=== PATIENT | male | born 1960 | race Caucasian/White ===

== ENCOUNTER 2017-04-18 01:33 | Inpatient (IN) | payer SELFPAY ==
[~2017-04-18] VITALS: Ht 185.4 cm; Wt 133.8 kg
--- NOTE | 2017-04-18 01:35 | NUR ---
PT TAKEN TO BED 1
--- NOTE | 2017-04-18 01:35 | NUR ---
56/M CAME W/ C/O SOB X 1HR AND COUGH X LAST WEDNESDAY AND 12/01 SUDDEN ONSET RT SIDED CHEST PAIN RADIATING TO SUBTERNAL UPON ARRIVAL TO BED. PT PLACED ON DIRECTOR CLIENT SERVICES AND EKG, REVIEWED BY TALIA CREWS. SINUS TACHY ON MONITOR WITH RATE 111. PT ABLE TO SPEAK AT FULL LENGTH WITH MODERATE DISTRESS AND STATES " I HAVE A LOT OF PHLEGM". RLL NOTED WITH RHONCHI AND WHEEZING ON ANTHONY UPPER LOBES NOTED. 24 RR EVEN AND LABORED WITH ACCESSORY MUSCLE USE. PT STATES HE HAS BEEN SEEN BY MD FOR SIMILAR SYMPTOMS AND WAS GIVEN VENTOLIN AND MUCINEX WITHOUT RELIEF OF SYMPTOMS. SKIN IS WARM AND DRY, AOX4, GCS 15. PMH: HTN Addendum: 04/18/17 at 0233 by HEATHER TALIA CREWS AT BEDSIDE
[2017-04-18 01:38] VITALS: BP 197/121
[2017-04-18] MEDS ORDERED: ASPIRIN 325 MG TAB PO ONE (01:50)
[2017-04-18] MEDS ORDERED: NITROGLYCERIN 0.4 MG TAB SL ONE (01:50)
--- NOTE | 2017-04-18 01:50 | NUR ---
NTG 0.4 MG SL GIVEN
--- NOTE | 2017-04-18 01:56 | NUR ---
NTG 0.4 MG SL GIVEN AT THIS TIME FOR CHETS PAIN BP162/136 P119
[2017-04-18] MEDS ORDERED: MORPHINE SULFATE 4 MG/ML SYR IVP ONE (02:05)
[2017-04-18 02:07] LABS: HEMATOCRIT 48.7 % (36-52); MEAN CORPUSCULAR HEMOGLOBIN 31 pg (27-31); MEAN CORPUSCULAR HGB CONC 33 g/dL (33-37); MEAN CORPUSCULAR VOLUME 95 fL (80-94); PLATELET COUNT (AUTO) 198 K/uL (140-450); RED BLOOD CELL COUNT(AUTO) 5.16 MIL/uL (4.20-6.10); RED CELL DISTRIBUTION WIDTH 12.6 % (11.6-13.7); WHITE BLOOD COUNT (AUTO) 9.9 K/uL (4.8-10.8)
[2017-04-18 02:17] LABS: ANION GAP 12.8 (8-16); CARBON DIOXIDE 26.9 mmol/L (21-32); CREATININE 1.6 mg/dL (0.7-1.3); POTASSIUM 4.7 mmol/L (3.5-5.1)
[2017-04-18 02:24] LABS: ALBUMIN 3.8 g/dL (3.4-5.0); TOTAL BILIRUBIN 0.9 mg/dL (0.0-1.0)
[2017-04-18] MEDS ORDERED: ALBUTEROL SULFATE/IPRATROPIU 3 ML SOL IH ONE (02:25)
[2017-04-18 02:28] LABS: LYMPHOCYTES % (MANUAL) 12 % (20-46); MONOCYTES % (MANUAL) 8 % (5-12)
[2017-04-18 02:32] LABS: CREATINE KINASE MB 5.2 ng/mL (0-3.6)
--- NOTE | 2017-04-18 02:37 | NUR ---
Respiratory Therapist at bedside for respiratory intervention.
--- NOTE | 2017-04-18 02:40 | NUR ---
PT STATES " HE FEELS BETTER". VSS AT THIS TIME
--- NOTE | 2017-04-18 03:00 | NUR ---
PT TAKEN TO CT
[2017-04-18 03:01] LABS: PROTHROMBIN TIME 10.8 secs (10.8-13.4)
--- NOTE | 2017-04-18 03:21 | NUR ---
PT RETURN FROM CT
--- NOTE | 2017-04-18 04:00 | NUR ---
Patient appears to be resting comfortably in bed. Vital Signs within normal limits. Respirations even and unlabored.
[2017-04-18] MEDS ORDERED: ACETAMIN/CODEINE 120/12MG-5ML 5 ML UDC PO ONE (04:10)
[2017-04-18] MEDS ORDERED: LEVOFLOXACIN 750 MG/D5W PREMIX 150 ML IV ONE (04:20)
[2017-04-18] MEDS ORDERED: KETOROLAC 30 MG/ML VIAL IVP ONE (04:30)
[2017-04-18] MEDS ORDERED: AMLO10TA PO (04:51)
[2017-04-18] MEDS ORDERED: ONDANSETRON 4 MG/2 ML VIAL IVP PRN (05:00)
[2017-04-18] MEDS ORDERED: ACETAMINOPHEN 325 MG TAB PO PRN (05:00)
[2017-04-18] MEDS ORDERED: HYDROmorphone 1 MG/ML AMP IVP ONE (05:15)
--- NOTE | 2017-04-18 05:23 | NUR ---
Patient will be admitted to care of SHANNA. Admited to TELE. Will go to room 119A. Belongings list completed. BEDSIDE Report to TRUDI RAMSAY. IV INFUSING
--- NOTE | 2017-04-18 05:35 | NUR ---
RECEIVED THIS 56 YEAR OLD MALE FROM ER PER KATIE WITH CC OF SOB AND COUGH, AMBULATED TO BED WITH STEADY GAIT, VITAL SIGNS TAKEN, BP-169/110, DR PECK MADE AWARE, PUT ON TELE MONITOR AND O2 VIA NASAL CANNULA AT 2L, HOB ON HIGH FOWLERS POSITION, VERBALIZED LEFT SIDED CHEST AND BACK WHEN COUGHING, ORIENTED TO ROOM AND CALL LIGHT, FAMILY MEMBERS AT BEDSIDE, CALL LIGHT WITHIN REACH.
[2017-04-18] MEDS: guaiFENesin 600 MG TABER PO SCH ×2 (06:30→21:10)
[2017-04-18] MEDS: NACL 0.9% 1,000 ML IV SCH ×2 (06:32→16:06)
--- NOTE | 2017-04-18 06:32 | NUR ---
ASK DR PECK FOR DIET, HE SAID HE CAN EAT, WATER PROVIDED, HE SAID TO GIVE THE MUCINEX 0900 DOSE NOW, CARRIED OUT, IVF INFUSING WELL, MONITORED CLOSELY.
[2017-04-18] MEDS: guaiFENesin/CODEINE 100/10MG 5 ML UDC PO PRN ×2 (06:35→19:43)
--- NOTE | 2017-04-18 07:15 | NUR ---
PT SITTING ON BED, AWAITING BREATHING TX FROM RT, BEDSIDE REPORT GIVEN TO SOBIA RIDER FOR CONTINUITY OF CARE.
[2017-04-18 07:17] LABS: CHOL/HDL RATIO 2.1 (1-4.5); FREE T4 (FREE THYROXINE) 1.13 ng/dL (0.76-1.46); MAGNESIUM 1.7 mg/dL (1.8-2.4); THYROID STIMULATING HORMONE 1.4 uIU/mL (0.34-3.74)
--- NOTE | 2017-04-18 07:20 | NUR ---
RECEIVED REPORT FROM INFORMATION SYSTEMS SECURITY MANAGER. PT IS RESTING IN BED, AAOX4, AMBULATORY, PT HAS IV ON HIS LEFT AC, PATENT, INTACT, FLUSHING WELL, PT IS COMPLAINING OF CHEST SORENESS WHEN HE INHALES, PT TRYING TO SUPPRESS COUGH, RT IS AT PATIENT'S BEDSIDE BEGINNING PT ON BREATHING TREATMENT, DISCUSSED PLAN OF CARE WITH PT, PT VERBALIZED UNDERSTANDING, SAFETY/FALL PRECAUTIONS ARE IN PLACE, CALL LIGHT IS WITHIN REACH, WILL CONTINUE TO MONITOR.
[2017-04-18] MEDS: ALBUTEROL SULFATE/IPRATROPIU 3 ML SOL IH SCH ×3 (07:33→20:09)
--- NOTE | 2017-04-18 07:34 | NUR ---
PATIENT COMPLAINING OF NAUSEA AND STATES HE FEELS LIKE HE IS GOING TO VOMIT. WILL MEDICATE WITH ZOFRAN IVP AT THIS TIME.
[2017-04-18 08:00] VITALS: BP 175/103
[2017-04-18 08:00] LABS: PROTHROMBIN TIME 11.2 secs (10.8-13.4)
[2017-04-18] MEDS: DOCUSATE SODIUM 100 MG GELCAP PO SCH ×2 (08:17→21:00)
[2017-04-18] MEDS: amLODIPine 5 MG TAB PO SCH (08:17)
--- NOTE | 2017-04-18 08:17 | NUR ---
DUE MEDICATION GIVEN, PT TOLERATED WELL, CALL LIGHT WITHIN REACH, PATIENT'S GIRLFRIEND IS AT BEDSIDE.
[2017-04-18] MEDS: METOPROLOL 50 MG TAB PO SCH ×2 (09:54→21:10)
--- NOTE | 2017-04-18 10:30 | NUR ---
PT AMBULATING AROUND THE NURSES STATION ACCOMPANIED BY HIS GIRLFRIEND.
[2017-04-18] MEDS: HYDROcodone/APAP 7.5/325 MG 1 TAB PO PRN ×2 (11:19→18:20)
[2017-04-18] MEDS ORDERED: MAGNESIUM OXIDE 400 MG TAB PO SCH (11:25)
[2017-04-18 12:00] VITALS: BP 143/98
--- NOTE | 2017-04-18 12:50 | NUR ---
PT IS RESTING IN BED, NO S/S OF RESPIRATORY DISTRESS OR DISCOMFORT NOTED, CALL LIGHT IS WITHIN REACH.
[2017-04-18] MEDS ORDERED: LISINOPRIL 10 MG TAB PO SCH (13:30)
[2017-04-18] MEDS: LISINOPRIL 10 MG TAB PO SCH (13:41)
[2017-04-18 16:00] VITALS: BP 120/83
[2017-04-18] MEDS: ALBUTEROL SULFATE/IPRATROPIU 3 ML SOL IH PRN (16:18)
--- NOTE | 2017-04-18 17:02 | NUR ---
1650 PLACED PT ON 4LNC WITH HUMIDIFICATION. PT SATS ON 3LNC ARE 90%
--- NOTE | 2017-04-18 17:30 | NUR ---
DR. COSME IN PATIENT'S ROOM TALKING TO PT AND FAMILY. PER DR. COSME HE WILL NOT NEED A THORACENTESIS AT THIS TIME. WILL CONTINUE WITH ANTIBIOTICS.
--- NOTE | 2017-04-18 19:29 | NUR ---
ENDORSED PT TO EXHIBITS COORDINATOR NURSE FOR CONTINUITY OF CARE. PT STABLE AT THIS TIME, FAMILY IS AT BEDSIDE.
--- NOTE | 2017-04-18 19:30 | NUR ---
RECEIVED PT AWAKE ON HIGH FOWLERS POSITION TALKING TO FAMILY MEMBERS AT BEDSIDE, VITAL SIGNS STABLE, DENIES ANY PAIN EXCEPT WHEN COUGHING, OCCASIONAL COUGH NOTED, WILL MEDICATE PRN WITH COUGH MEDICATION, IVF INFUSING WELL, PLAN OF CARE DISCUSS, SAFETY MEASURES IN PLACE, CALL LIGHT WITHIN REACH.
[2017-04-18 20:00] VITALS: BP 114/78
--- NOTE | 2017-04-18 21:15 | NUR ---
DUE MEDS GIVEN WITH EDUCATION PROVIDED, REFUSED COLACE, RISK AND BENEFITS EXPLAINED, STILL REFUSED, ALL NEEDS ATTENDED.
--- NOTE | 2017-04-18 22:40 | NUR ---
PT AMBULATORY TO BR WITH STEADY GAIT, VOIDED FREELY, NO SOB NOTED, MONITORED CLOSELY.
[2017-04-18 23:14] LABS: APPEARANCE,URINE CLEAR (CLEAR); BILIRUBIN,URINE NEGATIVE (NEGATIVE); BLOOD, URINE 1+ (NEGATIVE); COLOR,URINE YELLOW (YELLOW); LEUKOCYTE ESTERASE ,URINE NEGATIVE (NEGATIVE); NITRITE, URINE NEGATIVE (NEGATIVE); PH,URINE 5.5 (5.0-9.0); UGLUCOSE NEGATIVE (NEGATIVE)
[2017-04-19] VITALS: BP 116/68
--- NOTE | 2017-04-19 | NUR ---
PT SLEEPING, EASILY AROUSABLE, VITAL SIGNS STABLE, DENIES ANY PAIN, NO SOB NOTED, IVF INFUSING WELL, CONTINUE TO MONITOR CLOSELY.
[2017-04-19 00:07] LABS: RBC,URINE 0-5 (RARE) /HPF (0-5); WBC,URINE 0-5 (RARE) /HPF (0-5)
[2017-04-19] MEDS: guaiFENesin/CODEINE 100/10MG 5 ML UDC PO PRN ×2 (03:40→20:55)
--- NOTE | 2017-04-19 03:40 | NUR ---
PT COMPLAINING OF CONGESTION DUE TO TOO MUCH SECRETION, UNABLE TO COUGH IT OUT, PAGED RT NAHED, WILL GIVE BREATHING TX, LEFT SIDED PAIN ONLY WHEN COUGHING, MEDICATED PRN WITH ROBITUSSIN FOR COUGH, SAT-96% ON 2L/NC, NO SOB NOTED, MONITORED CLOSELY.
[2017-04-19] MEDS: NACL 0.9% 1,000 ML IV SCH ×3 (03:41→17:15)
[2017-04-19] MEDS: ALBUTEROL SULFATE/IPRATROPIU 3 ML SOL IH PRN ×2 (03:51→15:23)
[2017-04-19 04:00] VITALS: BP 111/70
--- NOTE | 2017-04-19 05:50 | NUR ---
PT SEEN SLEEPING ON HIGH FOWLERS POSITION, O2 IN PLACE AT 2L/NC, NO SOB NOTED, IVF INFUSING WELL, MONITORED CLOSELY.
[2017-04-19 06:58] LABS: BASOPHILS # (AUTO) 0.1 K/uL (0.00-0.22); BASOPHILS % (AUTO) 1.2 % (0.0-2.0); EOSINOPHILS % (AUTO) 0.2 % (0.0-4.0); HEMATOCRIT 39.8 % (36-52); HEMOGLOBIN 13.1 g/dL (12.0-18.0); LYMPHOCYTES % (AUTO) 11.2 % (20.5-51.1); MEAN CORPUSCULAR HEMOGLOBIN 31 pg (27-31); MEAN CORPUSCULAR HGB CONC 33 g/dL (33-37); MEAN CORPUSCULAR VOLUME 95 fL (80-94); MONOCYTES # (AUTO) 1.3 K/uL (0.8-1.0); MONOCYTES % (AUTO) 15.7 % (1.7-9.3); NEUTROPHILS # (AUTO) 6.2 K/uL (1.8-7.7); NEUTROPHILS % (AUTO) 71.7 % (42.2-75.2); PLATELET COUNT (AUTO) 155 K/uL (140-450); RED CELL DISTRIBUTION WIDTH 12.7 % (11.6-13.7); WHITE BLOOD COUNT (AUTO) 8.6 K/uL (4.8-10.8)
[2017-04-19 07:24] LABS: CARBON DIOXIDE 27.6 mmol/L (21-32); CREATININE 1.8 mg/dL (0.7-1.3); POTASSIUM 4.6 mmol/L (3.5-5.1)
[2017-04-19] MEDS: ALBUTEROL SULFATE/IPRATROPIU 3 ML SOL IH SCH ×3 (07:27→19:59)
--- NOTE | 2017-04-19 07:28 | NUR ---
SATURATION 99% ON HUMIDIFIED SUPPLEMENTAL OXYGEN AT 4 LPM VIA NC POST HHN THERAPY TITRATED FIO2 TO 3 LPM STEPAN/RN AWARE PATIENT UNABLE TO FACILITATE INCENTIVE SPIROMETRY AT THIS TIME DUE TO LEFT SIDE CHEST/ABDOMINAL PAIN RN AWARE MANAGEMENT DEVELOPMENT SPECIALIST TO ATTEMPT IS AT A LATER TIME
[2017-04-19 07:29] LABS: MAGNESIUM 1.8 mg/dL (1.8-2.4); PHOSPHORUS 4.6 mg/dL (2.5-4.9)
--- NOTE | 2017-04-19 07:35 | NUR ---
PT AWAKE, NO SIGNS OF DISTRESS, PRESENTLY GETTING BREATHING TX FROM RT YARIEL, BEDSIDE REPORT GIVEN TO RN STEAPN FOR CONTINUITY OF CARE.
--- NOTE | 2017-04-19 07:50 | NUR ---
ENDORSEMENT RECEIVED FROM DIRECTOR OF GUIDANCE NURSE. PATIENT IS AWAKE, ALERT. RESPIRATION EVEN, UNLABOR ON 3L. RT WAS AT BEDSIDE. SKIN DRY AND WARM. IV PATENT AND INTACT. COMPLAINED OF PAIN ON LEFT SIDE OF CHEST /, WILL MEDICATE PER ORDER. DENIED SOB AT THIS TIME. PLAN OF CARE WAS DISCUSSED WITH PATIENT. BED AT LOW POSITION, SIDE RAILS UP. CALL LIGHT WITHIN REACH.
[2017-04-19 08:00] VITALS: BP 107/62
[2017-04-19] MEDS: guaiFENesin 600 MG TABER PO SCH ×2 (08:24→20:57)
[2017-04-19] MEDS: LEVOFLOXACIN 750 MG/D5W PREMIX 150 ML IV SCH (08:24)
[2017-04-19] MEDS: amLODIPine 5 MG TAB PO SCH (08:25)
[2017-04-19] MEDS: LISINOPRIL 10 MG TAB PO SCH (08:25)
[2017-04-19] MEDS: HYDROcodone/APAP 7.5/325 MG 1 TAB PO PRN ×2 (08:25→17:49)
[2017-04-19] MEDS: METOPROLOL 50 MG TAB PO SCH ×2 (08:26→20:56)
[2017-04-19] MEDS: DOCUSATE SODIUM 100 MG GELCAP PO SCH ×2 (08:26→20:56)
--- NOTE | 2017-04-19 10:03 | NUR ---
PATIENT HAS BEEN SCREENED AND CATEGORIZED MODERATE NUTRITION RISK. PATIENT WILL BE SEEN WITHIN 3-5 DAYS OF ADMISSION. 04/20/17-04/22/[address]
--- NOTE | 2017-04-19 10:26 | NUR ---
PATIENT COMPLAINED OF UNABLE TO COUGH OF THE PHLEGM, CONGESTION, REQUESTED FOR BREATHING TREATMENT. LUNGS SOUND RHONCHI THROUGHOUT. RT WAS NOTIFIED.
--- NOTE | 2017-04-19 11:00 | NUR ---
PATIENT COMPLAINED OF BRUISE ON THE LEFT SIDE OF ABDOMEN THAT SPREADS TO THE BACK SINCE LAST NIGHT. NO PAIN WITH PALPATION, WILL NOTIFY .
--- NOTE | 2017-04-19 11:15 | NUR ---
PATIENT AMBULATES AROUND THE HALLWAY, STEADY GAIT, NO SOB NOTED, SPO2 94% ON ROOM AIR, HR 78. HOWEVER, PATIENT REQUESTED TO BE PUT BACK ON O2, STATED IT MAKES HIM FEEL BETTER.
--- NOTE | 2017-04-19 11:36 | NUR ---
TOLERATED INCENTIVE SPIROMETRY THERAPY WELL WITHOUT ADVERSE REACTIONS NOTED ENCOURAGED PATIENT WITH ACKNOWLEDGEMENT TO USE EVERY 1-2 HOURS WHILE AWAKE
[2017-04-19 12:00] VITALS: BP 113/71
--- NOTE | 2017-04-19 12:10 | NUR ---
PATIENT IS AWAKE, ALERT. RESPIRATION EVEN, UNLABOR ON 3L 02 VIA NC. DENIED PAIN, SOB AT THIS TIME. NO DISTRESS NOTED. WINDOWS DEPLOYMENT TECHNICIAN IS AT BEDSIDE. CALL LIGHT WITHIN REACH
--- NOTE | 2017-04-19 13:57 | NUR ---
CM NOTE INITIAL REVIEW FOR CRITERIA DONE
[2017-04-19] MEDS ORDERED: CALCIUM CARB/VIT-D 500 MG/200 IU 1 TAB PO SCH (14:45)
[2017-04-19] MEDS ORDERED: guaiFENesin 600 MG TABER PO SCH ×2 (14:45→21:00)
[2017-04-19] MEDS ORDERED: MAGNESIUM OXIDE 400 MG TAB PO SCH (15:00)
--- NOTE | 2017-04-19 15:09 | NUR ---
DR. VALDEZ WAS MADE AWARE OF THE PATIENT'S ABDOMEN BRUISE, ABDOMEN US WAS ORDER. PATIENT REFUSED THE US, STATED HE CAN BRUISE VERY EASILY, NO NEED FOR US.
[2017-04-19 16:00] VITALS: BP 114/72
--- NOTE | 2017-04-19 16:13 | NUR ---
PATIENT IS AWAKE, ALERT. RESPIRATION EVEN, UNLABOR ON 3L NC. COMPLAINED CONGESTION. MED WAS GIVEN PER ORDER. NO DISTRESS NOTED AT THIS TIME. CALL LIGHT WITHIN REACH, FAMILY AT BEDSIDE
[2017-04-19] MEDS: CALCIUM CARB/VIT-D 500 MG/200 IU 1 TAB PO SCH (17:12)
--- NOTE | 2017-04-19 18:39 | NUR ---
PATIENT IS AWAKE, ALERT. RESPIRATION EVEN, UNLABOR ON 3L NC. PAIN MEDICATION WAS GIVEN PER ORDER. NO DISTRESS NOTED AT THIS TIME. IV PATENT AND INTACT. CALL LIGHT WITHIN REACH
--- NOTE | 2017-04-19 19:22 | NUR ---
ENDORSEMENT GIVEN TO THE FILLER SPREADER NURSE. PATIENT IS STABLE AT THIS TIME Addendum: 04/19/17 at 1923 by Nya Velázquez RN PICTURE OF ABDOMINAL BRUISE WAS TAKEN.
--- NOTE | 2017-04-19 19:23 | NUR ---
ENDORSEMENT RECEIVED FROM DAY SHIFT NURSE KATHY RN, PATIENT IS AWAKE, ALERT. RESPIRATION EVEN, UNLABORED ON 3L O2 VIA NC. SKIN DRY AND WARM. BRUISING NOTED ON L SIDE OF ABDOMEN, PICTURE HAS BEEN TAKEN. IV PATENT AND INTACT, INFUSING WELL. INITIAL ASSESSMENT COMPLETED, PLAN OF CARE DISCUSSED WITH PT AT THE BEDSIDE, ALL SAFETY PRECAUTIONS MET, CALL LIGHT WITHIN REACH, BOARD UPDATED,WILL CONTINUE TO MONITOR.
--- NOTE | 2017-04-19 19:45 | NUR ---
PT EDUCATED ON COLLECTING URINE AND TO PUT IN THE CUP, PT VERBALIZED UNDERSTANDING.
[2017-04-19 20:00] VITALS: BP 122/77
--- NOTE | 2017-04-19 20:55 | NUR ---
ALL DUE MEDICATIONS GIVEN, PT TOLERATED WELL. NO S/S OF DISTRESS
--- NOTE | 2017-04-19 22:30 | NUR ---
DR. COSME HERE TO SEE PT, ORDERED TO D/C FLUIDS AND SALINE LOCK
--- NOTE | 2017-04-19 23:50 | NUR ---
PT C/O NOT BEING ABLE TO SLEEP, NOTIFIED DR. HINOJOSA, ORDERS TO BE PUT IN
[2017-04-19] MEDS: ZOLPIDEM 5 MG TAB PO PRN (23:56)
[2017-04-20] VITALS: BP 116/64
[2017-04-20] MEDS ORDERED: FUROSEMIDE 20 MG/2 ML VIAL IVP SCH (00:05)
--- NOTE | 2017-04-20 00:30 | NUR ---
PT RESTING IN BED COMFORTABLY, NO S/S OF DISTRESS NOTED.
--- NOTE | 2017-04-20 02:30 | NUR ---
PT RESTING IN BED COMFORTABLY, AWAKES TO NAME.
[2017-04-20] MEDS: guaiFENesin/CODEINE 100/10MG 5 ML UDC PO PRN ×2 (02:58→22:45)
[2017-04-20 04:00] VITALS: BP 124/68
[2017-04-20] MEDS: ALBUTEROL SULFATE/IPRATROPIU 3 ML SOL IH SCH ×3 (06:00→18:52)
--- NOTE | 2017-04-20 06:40 | NUR ---
PT SLEEPING NO SIGNS OF DISTRESS WERE NOTED AT THIS TIME, NO HHN GIVEN
--- NOTE | 2017-04-20 06:43 | NUR ---
PT STATED HE WAS UNABLE TO PEE IN THE CUP
[2017-04-20 07:16] LABS: BASOPHILS # (AUTO) 0.1 K/uL (0.00-0.22); BASOPHILS % (AUTO) 1.4 % (0.0-2.0); EOSINOPHILS % (AUTO) 0.2 % (0.0-4.0); HEMATOCRIT 38.3 % (36-52); HEMOGLOBIN 12.9 g/dL (12.0-18.0); LYMPHOCYTES # (AUTO) 1.4 K/uL (2.0-11.5); LYMPHOCYTES % (AUTO) 17.7 % (20.5-51.1); MEAN CORPUSCULAR HEMOGLOBIN 32 pg (27-31); MEAN CORPUSCULAR HGB CONC 34 g/dL (33-37); MEAN CORPUSCULAR VOLUME 95 fL (80-94); MONOCYTES # (AUTO) 1.3 K/uL (0.8-1.0); MONOCYTES % (AUTO) 17.3 % (1.7-9.3); NEUTROPHILS % (AUTO) 63.4 % (42.2-75.2); PLATELET COUNT (AUTO) 163 K/uL (140-450); RED BLOOD CELL COUNT(AUTO) 4.03 MIL/uL (4.20-6.10); RED CELL DISTRIBUTION WIDTH 12.5 % (11.6-13.7); WHITE BLOOD COUNT (AUTO) 7.8 K/uL (4.8-10.8)
--- NOTE | 2017-04-20 07:25 | NUR ---
REPORT GIVEN TO DAY NURSE KTAHY RN FOR CONTINUITY OF CARE, PT IN STABLE CONDITION
--- NOTE | 2017-04-20 07:50 | NUR ---
ENDORSEMENT RECEIVED FROM ART PROFESSOR NURSE. PATIENT IS SLEEPING COMFORTABLY, EASILY AROUSABLE. RESPIRATION EVEN, UNLABOR ON 3L NC. SKIN DRY AND WARM. COMPLAINED OF CONGESTION. LUNG SOUNDS RHONCHI ON UPPER LOBES, WILL MEDICATE PER ORDER. NO DISTRESS NOTED AT THIS TIME. IV PATENT AND INTACT. PLAN OF CARE WAS DISCUSSED WITH PATIENT. BED AT LOW POSITION, HEAD OF THE BED WAS ELEVATED, SIDE RAILS UP. CALL LIGHT WITHIN REACH
[2017-04-20 08:00] VITALS: BP 110/70
[2017-04-20] MEDS: CALCIUM CARB/VIT-D 500 MG/200 IU 1 TAB PO SCH ×3 (08:53→16:17)
[2017-04-20] MEDS: guaiFENesin 600 MG TABER PO SCH ×2 (08:53→21:07)
[2017-04-20] MEDS: METOPROLOL 50 MG TAB PO SCH ×2 (08:54→21:07)
[2017-04-20] MEDS: LEVOFLOXACIN 750 MG/D5W PREMIX 150 ML IV SCH (08:54)
[2017-04-20] MEDS: amLODIPine 5 MG TAB PO SCH (08:54)
[2017-04-20] MEDS: DOCUSATE SODIUM 100 MG GELCAP PO SCH ×2 (09:00→21:00)
[2017-04-20 09:31] LABS: ANION GAP 14.4 (8-16); CARBON DIOXIDE 24.1 mmol/L (21-32); CREATININE 1.5 mg/dL (0.7-1.3); POTASSIUM 4.5 mmol/L (3.5-5.1)
--- NOTE | 2017-04-20 11:15 | NUR ---
PATIENT AWAKE, ALERT. RESPIRATION EVEN, UNLABOR ON 3L NC. PATIENT COMPLAINED OF DIFFICULTY BREATHING DUE TO THE CONGESTION. LUNGS SOUND CLEAR. SP02 93%. INCREASED 02 TO 4L NC.
--- NOTE | 2017-04-20 11:30 | NUR ---
PATIENT AMBULATED AROUND THE HALLWAY WITH O2 4L NC, STEADY GAIT, NO SOB NOTED. PATIENT TOLERATED WELL
[2017-04-20 12:00] VITALS: BP 114/69
--- NOTE | 2017-04-20 12:21 | NUR ---
PATIENT IS AWAKE, ALERT, SITTING ON THE CHAIR. RESPIRATION EVEN, UNLABOR ON 4L NC. DENIED SOB, PAIN AT THIS TIME. FAMILY AT BEDSIDE. CALL LIGHT WITHIN REACH. MED WAS GIVEN PER ORDER
--- NOTE | 2017-04-20 12:55 | NUR ---
PT SLEEPING NO HHN GIVEN AT THIS TIME NO SIGNS OF DISTRESS NOTED AT THIS TIME
--- NOTE | 2017-04-20 13:50 | NUR ---
PATIENT AWAKE, ALERT. RESPIRATION EVEN, UNLABOR. COMPLAINED OF DIFFICULTY BREATHING WITH CONGESTION, RT WAS NOTIFIED FOR PRN TREATMENT.
[2017-04-20] MEDS: ALBUTEROL SULFATE/IPRATROPIU 3 ML SOL IH PRN (14:00)
--- NOTE | 2017-04-20 14:36 | NUR ---
URINE WAS COLLECTED AND SENT TO LAB.
[2017-04-20 16:00] VITALS: BP 122/69
[2017-04-20 16:07] LABS: PROTHROMBIN TIME 11.2 secs (10.8-13.4)
--- NOTE | 2017-04-20 16:29 | NUR ---
PATIENT WAS AWAKE, ALERT. RESPIRATION EVEN, UNLABOR ON 3L NC. DENIED SOB, PAIN AT THIS TIME. VS WAS TAKEN. MED WAS GIVEN PER ORDER. NO DISTRESS NOTED AT THIS TIME. MD WAS AT BEDSIDE. CALL LIGHT WITHIN REACH
--- NOTE | 2017-04-20 16:49 | NUR ---
PATIENT IS BACK TO THE UNIT FROM CT SCAN. PATIENT DENIED SOB AT THIS TIME. THE NEED FOR SPUTUM CULTURE WAS EXPLAINED TO THE PATIENT. CUP SPECIMEN IS AT BEDSIDE.
[2017-04-20] MEDS ORDERED: ALBUTEROL SULFATE/IPRATROPIU 3 ML SOL IH SCH (18:00)
[2017-04-20] MEDS: ACETYLCYSTEINE 10% (100 MG/ML) 100 MG/ML VIAL INH SCH (18:52)
--- NOTE | 2017-04-20 19:25 | NUR ---
ENDORSEMENT GIVEN TO THE KNOWLEDGE ARCHITECT NURSE. PATIENT IS STABLE AT THIS TIME
--- NOTE | 2017-04-20 19:26 | NUR ---
PATIENT REPORT RECEIVED AT BEDSIDE FROM MORNING NURSE. PATIENT IS ASLEEP, BUT EASY TO AROUSE. NO SIGNS AND SYMPTOMS OF DISTRESS NOTED. BREATHING EVEN AND UNLABORED. PATIENT'S DAUGHTERS ARE AT BEDSIDE. IV SIGHT NOTED ON LEFT ARM, SALINE LOCKED. PATIENT IS ON O2 3L VIA NC. BED IN LOWEST POSITION, SIDE RAILS UP AND CALL LIGHT WITHIN REACH. WILL CONTINUE TO MONITOR.
--- NOTE | 2017-04-20 19:26 | NUR ---
PATIENT REPORT RECEIVED FROM MORNING NURSE AT BEDSIDE. PATIENT IS CURRENTLY GETTING HEMODIALYSIS DONE. PATIENT IS AOX2. FAMILY AND HD NURSE IS AT BEDSIDE. NO SIGNS AND SYMPTOMS OF DISTRESS NOTED. PATIENT IS ON ROOM AIR. IV SITE IS ON LEFT HAND, IVF INFUSING WELL. ADDY CATH NOTED ON RIGHT UPPER CHEST. BED IN LOWEST POSITION, SIDE RAILS UP AND CALL LIGHT WITHIN REACH. WILL CONTINUE TO MONITOR. Addendum: 04/20/17 at 2337 by Emeka Seaman RN WRONG PATIENT
[2017-04-20 20:00] VITALS: BP 125/78
--- NOTE | 2017-04-20 20:30 | NUR ---
STUDENT NURSE WITH SUPERVISION OF CLINICAL INSTRUCTOR ADMINISTERED PATIENT MEDS AND GAVE MEDICATION EDUCATION. PATIENT TOLERATED WELL. WILL CONTINUE TO MONITOR. Addendum: 04/20/17 at 2335 by Emeka Seaman RN WRONG PATIENT
--- NOTE | 2017-04-20 21:30 | NUR ---
MEDICATION EDUCATION GIVEN, PATIENT VERBALIZED UNDERSTANDING. MEDS GIVEN ORDERED. PATIENT TOLERATED WELL. WILL CONTINUE TO MONITOR. Addendum: 04/20/17 at 2334 by Emeka Seaman RN WRONG PATIENT. Addendum: 04/20/17 at 2336 by Emeka Seaman RN DISREGARD, CORRECT PATIENT
[2017-04-20] MEDS: ZOLPIDEM 5 MG TAB PO PRN (22:42)
[2017-04-21] VITALS: BP 120/80
--- NOTE | 2017-04-21 00:45 | NUR ---
CHECKED ON PATIENT. PATIENT IS ASLEEP. NO SIGNS AND SYMPTOMS OF DISTRESS NOTED. BREATHING EVEN AND UNLABORED. WILL CONTINUE TO MONITOR.
[2017-04-21] MEDS: ALBUTEROL SULFATE/IPRATROPIU 3 ML SOL IH SCH ×2 (01:31→07:20)
[2017-04-21] MEDS: ACETYLCYSTEINE 10% (100 MG/ML) 100 MG/ML VIAL INH SCH ×2 (01:31→07:21)
--- NOTE | 2017-04-21 02:00 | NUR ---
CHECKED ON PATIENT. PATIENT IS ASLEEP. NO SIGNS AND SYMPTOMS OF DISTRESS NOTED. BREATHING EVEN AND UNLABORED. WILL CONTINUE TO MONITOR.
[2017-04-21 04:00] VITALS: BP 130/79
[2017-04-21] MEDS: guaiFENesin/CODEINE 100/10MG 5 ML UDC PO PRN (04:47)
[2017-04-21 06:20] LABS: ANION GAP 12.2 (8-16); CARBON DIOXIDE 25.9 mmol/L (21-32); CREATININE 1.1 mg/dL (0.7-1.3); POTASSIUM 4.1 mmol/L (3.5-5.1)
[2017-04-21 06:24] LABS: PHOSPHORUS 2.6 mg/dL (2.5-4.9)
[2017-04-21 06:25] LABS: BASOPHILS # (AUTO) 0.1 K/uL (0.00-0.22); BASOPHILS % (AUTO) 1.7 % (0.0-2.0); EOSINOPHILS % (AUTO) 0.6 % (0.0-4.0); HEMATOCRIT 38.7 % (36-52); HEMOGLOBIN 12.9 g/dL (12.0-18.0); LYMPHOCYTES # (AUTO) 1.4 K/uL (2.0-11.5); LYMPHOCYTES % (AUTO) 17.8 % (20.5-51.1); MEAN CORPUSCULAR HEMOGLOBIN 31 pg (27-31); MEAN CORPUSCULAR HGB CONC 33 g/dL (33-37); MEAN CORPUSCULAR VOLUME 94 fL (80-94); MONOCYTES # (AUTO) 1.3 K/uL (0.8-1.0); MONOCYTES % (AUTO) 15.9 % (1.7-9.3); NEUTROPHILS # (AUTO) 5.1 K/uL (1.8-7.7); PLATELET COUNT (AUTO) 201 K/uL (140-450); RED BLOOD CELL COUNT(AUTO) 4.13 MIL/uL (4.20-6.10); RED CELL DISTRIBUTION WIDTH 12.5 % (11.6-13.7); WHITE BLOOD COUNT (AUTO) 7.9 K/uL (4.8-10.8)
--- NOTE | 2017-04-21 07:15 | NUR ---
PATIENT REPORT GIVEN TO MORNING NURSE FOR CONTINUITY OF CARE. PATIENT IS IN STABLE CONDITION
--- NOTE | 2017-04-21 07:16 | NUR ---
RECEIVED REPORT FROM TECHNICAL SERVICES LIBRARIAN NURSE CARMEN AT BEDSIDE FOR CONTINUITY OF CARE. PT IS AWAKE AND ORIENTED. INTRODUCED SELF AND UPDATED BOARD. ON RA. O2 SAT 94%. NO SIGNS OF RESPIRATORY DISTRESS. PT WITH NON-PRODUCTIVE COUGH. IV TO L HAND 22G SL. SKIN WARM AND DRY. BRUISE ON ABD. BED IN LOW POSITION, WHEELS LOCKED, CALL LIGHT WITHIN REACH. WILL CONTINUE TO MONITOR.
[2017-04-21 08:00] VITALS: BP 147/81
[2017-04-21] MEDS ORDERED: FUROSEMIDE 20 MG/2 ML VIAL IVP SCH (08:57)
[2017-04-21] MEDS: DOCUSATE SODIUM 100 MG GELCAP PO SCH (09:00)
[2017-04-21] MEDS: guaiFENesin 600 MG TABER PO SCH (09:49)
[2017-04-21] MEDS: LEVOFLOXACIN 750 MG/D5W PREMIX 150 ML IV SCH (09:49)
[2017-04-21] MEDS: amLODIPine 5 MG TAB PO SCH (09:50)
[2017-04-21] MEDS: CALCIUM CARB/VIT-D 500 MG/200 IU 1 TAB PO SCH (09:50)
[2017-04-21] MEDS: METOPROLOL 50 MG TAB PO SCH (09:51)
--- NOTE | 2017-04-21 10:15 | NUR ---
O2 SAT ON RA 94%. PT GOT UP AND OUT OF BED TO AMBULATE DOWN THE ESTEVES ACCOMPANIED BY STUDENT. O2 SAT 91% ON RA. REPORTED TO DR. VALDEZ.
--- NOTE | 2017-04-21 10:20 | NUR ---
NON-ADMIN LEVAQUIN IVPB. PT STATED "IV IS HURTING." IV TO R HAND SL
[2017-04-21] MEDS ORDERED: LACT1.4C PO (10:30)
[2017-04-21] MEDS ORDERED: METO25TA PO (10:30)
[2017-04-21] MEDS ORDERED: LEVO750T2 PO (10:30)
[2017-04-21] MEDS ORDERED: ALBU0.0912 INH (10:30)
[2017-04-21] MEDS ORDERED: GUAI-646 PO (10:30)
[2017-04-21] MEDS ORDERED: ALBU0.094 IH (10:35)
--- NOTE | 2017-04-21 11:55 | NUR ---
PT D/C TO GO HOME. GAVE D/C FORMS, INSTRUCTIONS, RX, LABS, AND FOLLOW UP APPOINTMENT TO PT AND PT'S DAUGHTERS. PT SIGNED FORMS AND VERBALIZED UNDERSTANDING. REMOVED IV TO L HAND 22G. IV CATHETER TIP INTACT. APPLIED DRESSING AND PRESSURE TO SITE. NO BLEEDING NOTED. REMOVED TELE MONITOR AND ID BANDS. PT CHANGED IN OWN CLOTHES AND LEFT WITH ALL PERSONAL BELONGINGS. LEFT UNIT VIA AMBULATION WITH STEADY GAIT ACCOMPANIED BY PT'S FAMILY MEMBERS. LEFT IN STABLE CONDITION.
[2017-04-21 12:00] VITALS: BP 143/88
== END 2017-04-21 11:55 | disposition home or self-care (01) | DRG 205 ==
LOC: MED 01:33 → MTU 04:58
PROVIDERS: ADMIT Family Medicine; ATTEND Family Medicine
DX: M94.0 Chondrocostal junction syndrome [Tietze] (principal); N17.0 Acute kidney failure with tubular necrosis; J96.21 Acute and chronic respiratory failure with hypoxia; J69.0 Pneumonitis due to inhalation of food and vomit; I50.43 Acute on chronic combined systolic (congestive) and diastolic (congestive) heart failure; I16.9 Hypertensive crisis, unspecified; E87.1 Hypo-osmolality and hyponatremia; K21.9 Gastro-esophageal reflux disease without esophagitis; E83.42 Hypomagnesemia; K43.9 Ventral hernia without obstruction or gangrene; R74.0 Nonspecific elevation of levels of transaminase and lactic acid dehydrogenase [LDH]; E66.01 Morbid (severe) obesity due to excess calories; E83.51 Hypocalcemia; Z68.38 Body mass index [BMI] 38.0-38.9, adult; I11.0 Hypertensive heart disease with heart failure
CPT/HCPCS: 36415; 71045; 71111; 71260; 76604; 76705; 80048; 80053; 81001; 82150; 82550; 82553; 83036; 83605; 83690; 83735; 83880; 83935; 84100; 84300; 84439; 84443; 84484; 85025; 85379; 85610; 85730; 87040; 87081; 87086; 93005; 94640; 96365; 96375; 99291; J1170; J1885; J1940; J1956; J2270; J2405; J7030; J7620; Q0092

== ENCOUNTER 2021-12-06 18:58 | Emergency (ER) | payer MEDICAID, OTHER ==
[~2021-12-06] VITALS: Ht 182.9 cm; Wt 104.3 kg
[~2021-12-06 18:58] MED LIST: ALBU6.7H IH; AMLO10TA PO; LACT1.4C PO; LEVO750T2 PO; METO25TA PO; MUC600 PO
--- NOTE | 2021-12-06 19:01 | NUR ---
Dr. Tenorio examining patient at [facility].
[2021-12-06 19:03] VITALS: BP 162/84
[2021-12-06] MEDS ORDERED: KETOROLAC 30 MG/ML VIAL IM ONE (19:10)
--- NOTE | 2021-12-06 19:10 | NUR ---
[facility]KE FROM [facility] C/O ANTHONY THIGHS PAIN S/P FALL X 3 WEEKS. PMH: DM.
[2021-12-06] MEDS ORDERED: IBUP-1878 PO (19:15)
[2021-12-06] MEDS ORDERED: HYDR-5080 PO ×2 (19:15→19:16)
--- NOTE | 2021-12-06 20:04 | NUR ---
Spoke with staff to update patient's and they will call back for transportation.
[2021-12-06 21:09] VITALS: BP 162/84
--- NOTE | 2021-12-06 21:09 | NUR ---
Patient discharged with v/s stable. Written and verbal after care instructions given and explained. Patient alert, oriented and verbalized understanding of instructions. Ambulatory with . All questions addressed prior to discharge. ID band removed. Patient advised to follow up with PMD. Rx of NORCO IBUPROFEN given. Patient educated on indication of medication including possible reaction and side effects. Opportunity to ask questions provided and answered.
--- NOTE | 2021-12-06 21:10 | NUR ---
The patient's care was reviewed and supervised by Fina Steele RN.
--- NOTE | 2021-12-06 21:10 | NUR ---
Patient D/C home with his family, called facility and update patient's status.
[2021-12-07] MEDS ORDERED: IBUP-2213 PO (13:04)
[2021-12-07] MEDS ORDERED: ONDA-188 PO (13:04)
[2021-12-07] MEDS ORDERED: ACET-9527 PO (13:04)
[2021-12-07] MEDS ORDERED: HYDR-5080 PO (18:07)
== END 2021-12-06 21:09 | disposition home or self-care (01) ==
LOC: MED 18:58
DX: S32.040A Wedge compression fracture of fourth lumbar vertebra, initial encounter for closed fracture (principal); I10 Essential (primary) hypertension; Z79.899 Other long term (current) drug therapy; X58.XXXA Exposure to other specified factors, initial encounter; Y93.89 Activity, other specified; Y92.89 Other specified places as the place of occurrence of the external cause; Y99.8 Other external cause status
CPT/HCPCS: 96372; 99283; J1885